=== PATIENT | male | born 1935 | race Caucasian/White ===

== ENCOUNTER 2020-09-08 15:36 | Inpatient (IN) | payer OTHER, BC ==
[2020-09-08] MEDS ORDERED: LACTATED RINGERS SOLUTION 1,000 ML IV STA (17:47)
[2020-09-08] MEDS ORDERED: ACETAMINOPHEN 1000 MG/100 ML BAG IVPB ONE (17:47)
[2020-09-08 18:12] LABS: BASO % 0.1 % (0-2.0); HEMATOCRIT 36.4 % (35.4-49); HEMOGLOBIN 12.4 GM/dL (11.7-16.9); LYMPH % 71.6 % (8-40); MCH 28.3 pg (25.7-33.7); MEAN PLT VOLUME 8.8 fl (7.5-11.1); MONO % 2.8 % (3.8-10.2); NEUT % 25.5 % (42.8-82.8); PLATELET COUNT 140 K/MM3 (134-434); RBC 4.39 M/mm3 (4.00-5.60); VENOUS BASE EXCESS -1.1 mmol/L (-2-2); VENOUS O2 SATURATION 73.8 % (70-80); VENOUS PCO2 33.9 mmHg (38-52); VENOUS PH 7.437 (7.310-7.410); WHITE BLOOD COUNT 20.4 K/mm3 (4.0-10.0)
[2020-09-08 18:23] LABS: ACTIVATED PTT 34.2 SECONDS (25.2-36.5)
[2020-09-08] MEDS ORDERED: CEFTRIAXONE 1,000 MG in DEXTROSE 5%-WATER - 50 ML IVPB ONE (18:26)
[2020-09-08] MEDS ORDERED: AZITHROMYCIN IVPB 500 MG in DEXTROSE 5%-WATER - 250 ML IVPB ONE (18:26)
[2020-09-08 18:32] LABS: CHLORIDE 102 mmol/L (98-107); SODIUM 134 mmol/L (136-145)
[2020-09-08] MEDS ORDERED: AZITHROMYCIN IVPB 500 MG/250 ML BAG IVPB ONE (18:34)
[2020-09-08] MEDS ORDERED: ACETAMINOPHEN INJECTION 100 ML IVPB ONE (18:34)
[2020-09-08 18:35] LABS: ALBUMIN 3.1 g/dl (3.4-5.0); ANION GAP 8 MMOL/L (8-16); BLOOD UREA NITROGEN 22.1 mg/dL (7-18); CALCIUM 7.9 mg/dL (8.5-10.1); CO2 23 mmol/L (21-32)
[2020-09-08 18:36] LABS: GLUCOSE,RANDOM 107 mg/dL (74-106)
[2020-09-08 18:37] LABS: BILIRUBIN,DIRECT 0.3 mg/dL (0.0-0.2); CREATININE 1.3 mg/dL (0.55-1.3); SGOT/AST 30 U/L (15-37); SGPT/ALT 24 U/L (13-61)
[2020-09-08] MEDS ORDERED: CEFTRIAXONE 1,000 GM in DEXTROSE 5%-WATER - 50 ML IVPB ONE (18:38)
[2020-09-08 18:39] LABS: BILIRUBIN,TOTAL 0.6 mg/dL (0.2-1); TOT PROT 6.5 g/dl (6.4-8.2)
[2020-09-08 18:41] LABS: ALK PHOS 67 U/L (45-117)
[2020-09-08 18:42] LABS: LDH 310 U/L (87-246)
[2020-09-08] MEDS ORDERED: SODIUM CHLORIDE 0.9% 500 ML INFUS.BAG IV ONE (18:45)
[2020-09-08 19:14] LABS: SMUDGE CELLS MODERATE
[2020-09-08 20:11] LABS: INR 1.32 (0.83-1.09); PROTHROMBIN TIME (PATIENT) 15.8 SEC (9.7-13.0)
[2020-09-08] MEDS ORDERED: ACETAMINOPHEN 325 MG TABLET (FP) PO PRN (21:54)
[2020-09-08] MEDS ORDERED: SODIUM CHLORIDE 1,000 ML IV SCH (22:00)
[2020-09-09] MEDS ORDERED: DEXAMETHASONE SOD PHOSPHATE 10 MG/1 ML VIAL ONE (01:32)
[2020-09-09] MEDS ORDERED: dilTIAZem HCL 60 MG TABLET ONE (01:33)
[2020-09-09] MEDS: DEXAMETHASONE SOD PHOSPHATE 4 MG/1 ML VIAL IVPUSH SCH ×2 (02:01→11:22)
[2020-09-09 02:41] LABS: EPI CELLS 23 /uL (0-25.1); HYALINE CASTS 7 /uL (0-3.1); PH,URINE 5.5 (5.0-8.0); URINE APPEARANCE CLEAR; URINE BACTERIA 16 /uL (0-1359); URINE BILIRUBIN NEGATIVE (NEGATIVE); URINE COLOR YELLOW; URINE GLUCOSE (UA) NEGATIVE (NEGATIVE); URINE KETONE TRACE (NEGATIVE); URINE LEUK ESTERASE NEGATIVE (NEGATIVE); URINE NITRITE NEGATIVE (NEGATIVE); URINE PROTEIN 2+ (NEGATIVE); URINE RBC 221 /uL (0-23.9); URINE UROBILINOGEN 0.2 mg/dL (0.2-1.0); URINE WBC 15 /uL (0-25.8)
[2020-09-09 07:30] LABS: HEMATOCRIT 33.4 % (35.4-49); HEMOGLOBIN 11.3 GM/dL (11.7-16.9); LYMPH % 73.2 % (8-40); MCHC 33.8 g/dl (32.0-35.9); MEAN CELL VOLUME 82.9 fl (80-96); MEAN PLT VOLUME 8.7 fl (7.5-11.1); MONO % 1.7 % (3.8-10.2); NEUT % 25.1 % (42.8-82.8); PLATELET COUNT 133 K/MM3 (134-434); RBC 4.03 M/mm3 (4.00-5.60); RDW 14.4 % (11.9-15.9); WHITE BLOOD COUNT 20.5 K/mm3 (4.0-10.0)
[2020-09-09 07:52] LABS: ALBUMIN 2.7 g/dl (3.4-5.0); CALCIUM 7.5 mg/dL (8.5-10.1)
[2020-09-09 07:53] LABS: BLOOD UREA NITROGEN 22.9 mg/dL (7-18)
[2020-09-09 07:57] LABS: PHOSPHOROUS 3.2 mg/dL (2.5-4.9); TOT PROT 5.7 g/dl (6.4-8.2)
[2020-09-09 07:58] LABS: BILIRUBIN,TOTAL 1.1 mg/dL (0.2-1)
[2020-09-09] MEDS ORDERED: ENOXAPARIN NA (PORCINE) 40 MG/0.4 ML DISP.SYRIN SQ ONE (09:29)
[2020-09-09] MEDS ORDERED: ZINC SULFATE 220 MG CAPSULE (FP) ONE (09:30)
[2020-09-09] MEDS ORDERED: CEFTRIAXONE 1 GM/50 ML BAG ONE (09:31)
[2020-09-09] MEDS ORDERED: ASCORBIC ACID 500 MG TABLET (FP) ONE (09:31)
[2020-09-09] MEDS ORDERED: CHOLECALCIFEROL (VIT D3) 1,000 UNIT (25 MCG) TABLET ONE (09:32)
[2020-09-09 09:39] LABS: ANISOCYTOSIS 0; MACROCYTOSIS 1+; PLATELET ESTIMATE DECREASED
[2020-09-09] MEDS: ENOXAPARIN NA (PORCINE) 40 MG/0.4 ML DISP.SYRIN SQ SCH (09:56)
[2020-09-09] MEDS: CEFTRIAXONE 1 GM in DEXTROSE 5%-WATER - 50 ML IVPB SCH (09:56)
[2020-09-09] MEDS: ZINC SULFATE 220 MG CAPSULE (FP) PO SCH (09:56)
[2020-09-09] MEDS: ASCORBIC ACID 500 MG TABLET (FP) PO SCH ×2 (09:57→22:27)
[2020-09-09] MEDS: CHOLECALCIFEROL (VIT D3) 1,000 UNIT (25 MCG) TABLET PO SCH (09:57)
[2020-09-09] MEDS ORDERED: DEXTROSE 5%-WATER - 50 ML IVPB ONE (11:14)
[2020-09-09] MEDS ORDERED: cefTRIAXone SODIUM 1 GM VIAL ONE (11:14)
[2020-09-09] MEDS ORDERED: PT OWN MED DRAWER 7, Y5N ONE ×3 (11:22→23:11)
[2020-09-09 12:08] VITALS: BMI 29.0
[2020-09-09] MEDS: AZITHROMYCIN IVPB 250 MG in DEXTROSE 5%-WATER - 250 ML IVPB SCH (12:09)
[2020-09-09] MEDS ORDERED: REMDESIVIR 200 MG in SODIUM CHLORIDE 210 ML IVPB ONE (15:45)
[2020-09-10] MEDS ORDERED: ACETAMINOPHEN 1000 MG/100 ML BAG IVPB ONE (00:22)
[2020-09-10 08:55] LABS: HEMATOCRIT 35.3 % (35.4-49); HEMOGLOBIN 11.9 GM/dL (11.7-16.9); MCH 27.7 pg (25.7-33.7); MCHC 33.7 g/dl (32.0-35.9); MEAN CELL VOLUME 82.2 fl (80-96); PLATELET COUNT 152 K/MM3 (134-434); RBC 4.29 M/mm3 (4.00-5.60); RDW 14.4 % (11.9-15.9)
[2020-09-10 09:25] LABS: ALBUMIN 2.7 g/dl (3.4-5.0); BLOOD UREA NITROGEN 25.9 mg/dL (7-18); CALCIUM 7.8 mg/dL (8.5-10.1); MAGNESIUM 2.1 mg/dL (1.8-2.4)
[2020-09-10 09:29] LABS: BILIRUBIN,TOTAL 0.5 mg/dL (0.2-1); CREATININE 1.2 mg/dL (0.55-1.3); PHOSPHOROUS 3.6 mg/dL (2.5-4.9)
[2020-09-10 09:30] LABS: TOT PROT 6.1 g/dl (6.4-8.2)
[2020-09-10 09:45] LABS: ERYTHROCYTE SEDIMENTATION RATE 57 mm/hr (0-20)
[2020-09-10] MEDS: ZINC SULFATE 220 MG CAPSULE (FP) PO SCH (12:18)
[2020-09-10] MEDS: CHOLECALCIFEROL (VIT D3) 1,000 UNIT (25 MCG) TABLET PO SCH (12:18)
[2020-09-10] MEDS: DEXAMETHASONE SOD PHOSPHATE 4 MG/1 ML VIAL IVPUSH SCH (12:18)
[2020-09-10] MEDS: ASCORBIC ACID 500 MG TABLET (FP) PO SCH ×2 (12:18→22:32)
[2020-09-10] MEDS: ENOXAPARIN NA (PORCINE) 40 MG/0.4 ML DISP.SYRIN SQ SCH (12:18)
[2020-09-10] MEDS: CEFTRIAXONE 1 GM in DEXTROSE 5%-WATER - 50 ML IVPB SCH (16:00)
[2020-09-10] MEDS: AZITHROMYCIN IVPB 250 MG in DEXTROSE 5%-WATER - 250 ML IVPB SCH (17:55)
[2020-09-10] MEDS: REMDESIVIR 100 MG in SODIUM CHLORIDE 230 ML IVPB SCH (18:42)
[2020-09-11 08:36] LABS: HEMATOCRIT 34.6 % (35.4-49); HEMOGLOBIN 11.6 GM/dL (11.7-16.9); MCH 28.1 pg (25.7-33.7); MCHC 33.6 g/dl (32.0-35.9); MEAN CELL VOLUME 83.6 fl (80-96); MEAN PLT VOLUME 9.2 fl (7.5-11.1); PLATELET COUNT 161 K/MM3 (134-434); RBC 4.14 M/mm3 (4.00-5.60); RDW 14.4 % (11.9-15.9); WHITE BLOOD COUNT 27.5 K/mm3 (4.0-10.0)
[2020-09-11 08:52] LABS: BLOOD UREA NITROGEN 28.6 mg/dL (7-18); CALCIUM 7.9 mg/dL (8.5-10.1)
[2020-09-11 08:53] LABS: ALBUMIN 2.4 g/dl (3.4-5.0); MAGNESIUM 2.2 mg/dL (1.8-2.4)
[2020-09-11 08:57] LABS: BILIRUBIN,TOTAL 0.4 mg/dL (0.2-1); CREATININE 1.1 mg/dL (0.55-1.3); PHOSPHOROUS 3.5 mg/dL (2.5-4.9); TOT PROT 5.4 g/dl (6.4-8.2)
[2020-09-11] MEDS ORDERED: cefTRIAXone SODIUM 1 GM VIAL ONE (09:46)
[2020-09-11] MEDS ORDERED: PT OWN MED DRAWER 7, Y5N ONE (09:46)
[2020-09-11] MEDS ORDERED: DEXTROSE 5%-WATER - 50 ML IVPB ONE (09:46)
[2020-09-11] MEDS: CHOLECALCIFEROL (VIT D3) 1,000 UNIT (25 MCG) TABLET PO SCH (09:53)
[2020-09-11] MEDS: DEXAMETHASONE SOD PHOSPHATE 4 MG/1 ML VIAL IVPUSH SCH (09:53)
[2020-09-11] MEDS: ENOXAPARIN NA (PORCINE) 40 MG/0.4 ML DISP.SYRIN SQ SCH (09:53)
[2020-09-11] MEDS: CEFTRIAXONE 1 GM in DEXTROSE 5%-WATER - 50 ML IVPB SCH (09:54)
[2020-09-11] MEDS: ASCORBIC ACID 500 MG TABLET (FP) PO SCH ×2 (09:54→21:53)
[2020-09-11 11:39] LABS: ERYTHROCYTE SEDIMENTATION RATE 51 mm/hr (0-20)
[2020-09-11] MEDS: ZINC SULFATE 220 MG CAPSULE (FP) PO SCH (12:35)
[2020-09-11] MEDS: REMDESIVIR 100 MG in SODIUM CHLORIDE 230 ML IVPB SCH (12:35)
[2020-09-11] MEDS: AZITHROMYCIN IVPB 250 MG in DEXTROSE 5%-WATER - 250 ML IVPB SCH (12:36)
[2020-09-12 09:20] LABS: BASO % 0.1 % (0-2.0); HEMATOCRIT 34.9 % (35.4-49); HEMOGLOBIN 11.8 GM/dL (11.7-16.9); LYMPH % 77.1 % (8-40); MCH 27.9 pg (25.7-33.7); MCHC 33.7 g/dl (32.0-35.9); MEAN CELL VOLUME 82.8 fl (80-96); MEAN PLT VOLUME 9.3 fl (7.5-11.1); MONO % 4.3 % (3.8-10.2); NEUT % 18.5 % (42.8-82.8); PLATELET COUNT 204 K/MM3 (134-434); RBC 4.22 M/mm3 (4.00-5.60); RDW 14.5 % (11.9-15.9)
[2020-09-12 09:38] LABS: CALCIUM 7.6 mg/dL (8.5-10.1)
[2020-09-12 09:39] LABS: ALBUMIN 2.5 g/dl (3.4-5.0); BLOOD UREA NITROGEN 29.3 mg/dL (7-18); MAGNESIUM 2.1 mg/dL (1.8-2.4); PHOSPHOROUS 3.1 mg/dL (2.5-4.9)
[2020-09-12 09:41] LABS: TOT PROT 5.8 g/dl (6.4-8.2)
[2020-09-12 09:42] LABS: CREATININE 1.1 mg/dL (0.55-1.3)
[2020-09-12 09:57] LABS: BILIRUBIN,TOTAL 0.4 mg/dL (0.2-1)
[2020-09-12] MEDS ORDERED: DEXTROSE 5%-WATER - 50 ML IVPB ONE (10:54)
[2020-09-12] MEDS ORDERED: cefTRIAXone SODIUM 1 GM VIAL ONE (10:54)
[2020-09-12 11:04] LABS: ANISOCYTOSIS 0; MACROCYTOSIS 0; PLATELET ESTIMATE NORMAL
[2020-09-12 11:29] LABS: ERYTHROCYTE SEDIMENTATION RATE 60 mm/hr (0-20)
[2020-09-12] MEDS: ZINC SULFATE 220 MG CAPSULE (FP) PO SCH (12:26)
[2020-09-12] MEDS: ENOXAPARIN NA (PORCINE) 40 MG/0.4 ML DISP.SYRIN SQ SCH (12:26)
[2020-09-12] MEDS: DEXAMETHASONE SOD PHOSPHATE 4 MG/1 ML VIAL IVPUSH SCH (12:26)
[2020-09-12] MEDS: CHOLECALCIFEROL (VIT D3) 1,000 UNIT (25 MCG) TABLET PO SCH (12:26)
[2020-09-12] MEDS: ASCORBIC ACID 500 MG TABLET (FP) PO SCH ×2 (12:27→21:19)
[2020-09-12] MEDS: CEFTRIAXONE 1 GM in DEXTROSE 5%-WATER - 50 ML IVPB SCH (12:27)
[2020-09-12] MEDS: AZITHROMYCIN IVPB 250 MG in DEXTROSE 5%-WATER - 250 ML IVPB SCH (12:27)
[2020-09-12] MEDS: REMDESIVIR 100 MG in SODIUM CHLORIDE 230 ML IVPB SCH (12:29)
[2020-09-12] MEDS ORDERED: PT OWN MED DRAWER 7, Y5N ONE (21:11)
[2020-09-12] MEDS: FAMOTIDINE 20 MG/50 ML IVPB 20 MG/50 ML MG IVPB SCH (21:18)
[2020-09-13] MEDS ORDERED: PT OWN MED DRAWER 7, Y5N ONE ×3 (01:06→21:07)
[2020-09-13 08:32] LABS: BASO % 0.2 % (0-2.0); HEMOGLOBIN 11.2 GM/dL (11.7-16.9); LYMPH % 73.2 % (8-40); MCH 27.5 pg (25.7-33.7); MCHC 32.8 g/dl (32.0-35.9); MEAN CELL VOLUME 83.7 fl (80-96); MEAN PLT VOLUME 9.3 fl (7.5-11.1); MONO % 4.6 % (3.8-10.2); PLATELET COUNT 221 K/MM3 (134-434); RBC 4.07 M/mm3 (4.00-5.60); RDW 14.9 % (11.9-15.9)
[2020-09-13 08:55] LABS: ALBUMIN 2.5 g/dl (3.4-5.0)
[2020-09-13 08:56] LABS: CALCIUM 7.7 mg/dL (8.5-10.1)
[2020-09-13 08:57] LABS: BLOOD UREA NITROGEN 33.4 mg/dL (7-18); MAGNESIUM 2.2 mg/dL (1.8-2.4)
[2020-09-13 08:58] LABS: CREATININE 1.1 mg/dL (0.55-1.3); PHOSPHOROUS 3.5 mg/dL (2.5-4.9)
[2020-09-13 08:59] LABS: BILIRUBIN,TOTAL 0.5 mg/dL (0.2-1)
[2020-09-13 09:00] LABS: TOT PROT 5.4 g/dl (6.4-8.2)
[2020-09-13] MEDS: ASCORBIC ACID 500 MG TABLET (FP) PO SCH ×2 (10:55→22:32)
[2020-09-13 10:56] LABS: ANISOCYTOSIS 1+; MACROCYTOSIS 0; OVALOCYTE 1+; PLATELET ESTIMATE NORMAL
[2020-09-13] MEDS: REMDESIVIR 100 MG in SODIUM CHLORIDE 230 ML IVPB SCH (10:56)
[2020-09-13] MEDS: ENOXAPARIN NA (PORCINE) 40 MG/0.4 ML DISP.SYRIN SQ SCH (10:56)
[2020-09-13] MEDS: ZINC SULFATE 220 MG CAPSULE (FP) PO SCH (10:56)
[2020-09-13] MEDS: CHOLECALCIFEROL (VIT D3) 1,000 UNIT (25 MCG) TABLET PO SCH (10:56)
[2020-09-13] MEDS: DEXAMETHASONE SOD PHOSPHATE 4 MG/1 ML VIAL IVPUSH SCH (10:56)
[2020-09-13 11:26] LABS: ERYTHROCYTE SEDIMENTATION RATE 26 mm/hr (0-20)
[2020-09-13] MEDS: FAMOTIDINE 20 MG/50 ML IVPB 20 MG/50 ML MG IVPB SCH (13:19)
[2020-09-14 09:56] LABS: BASO % 0.1 % (0-2.0); HEMATOCRIT 37.2 % (35.4-49); HEMOGLOBIN 12.3 GM/dL (11.7-16.9); LYMPH % 87.5 % (8-40); MCH 27.7 pg (25.7-33.7); MCHC 33.1 g/dl (32.0-35.9); MEAN CELL VOLUME 83.8 fl (80-96); MEAN PLT VOLUME 8.9 fl (7.5-11.1); MONO % 2.3 % (3.8-10.2); NEUT % 10.1 % (42.8-82.8); PLATELET COUNT 281 K/MM3 (134-434); RBC 4.45 M/mm3 (4.00-5.60); RDW 14.6 % (11.9-15.9)
[2020-09-14 10:20] LABS: ALBUMIN 2.8 g/dl (3.4-5.0)
[2020-09-14 10:21] LABS: BLOOD UREA NITROGEN 30.6 mg/dL (7-18); CALCIUM 7.8 mg/dL (8.5-10.1)
[2020-09-14 10:22] LABS: MAGNESIUM 2.1 mg/dL (1.8-2.4)
[2020-09-14 10:24] LABS: CREATININE 1.2 mg/dL (0.55-1.3); PHOSPHOROUS 3.5 mg/dL (2.5-4.9)
[2020-09-14 10:25] LABS: BILIRUBIN,TOTAL 0.7 mg/dL (0.2-1)
[2020-09-14] MEDS: DEXAMETHASONE SOD PHOSPHATE 4 MG/1 ML VIAL IVPUSH SCH (10:28)
[2020-09-14] MEDS: FAMOTIDINE 20 MG/50 ML IVPB 20 MG/50 ML MG IVPB SCH (10:29)
[2020-09-14] MEDS: ZINC SULFATE 220 MG CAPSULE (FP) PO SCH (10:29)
[2020-09-14] MEDS: CHOLECALCIFEROL (VIT D3) 1,000 UNIT (25 MCG) TABLET PO SCH (10:29)
[2020-09-14] MEDS: ASCORBIC ACID 500 MG TABLET (FP) PO SCH ×2 (10:29→21:37)
[2020-09-14] MEDS: ENOXAPARIN NA (PORCINE) 40 MG/0.4 ML DISP.SYRIN SQ SCH (10:29)
[2020-09-14 11:11] LABS: WHITE BLOOD COUNT 52.9 K/mm3 (4.0-10.0)
[2020-09-14] MEDS ORDERED: PT OWN MED DRAWER 7, Y5N ONE (21:32)
[2020-09-15 08:50] LABS: BASO % 0.1 % (0-2.0); HEMATOCRIT 34.4 % (35.4-49); HEMOGLOBIN 11.3 GM/dL (11.7-16.9); MCH 27.6 pg (25.7-33.7); MEAN CELL VOLUME 83.8 fl (80-96); MEAN PLT VOLUME 8.9 fl (7.5-11.1); MONO % 2.7 % (3.8-10.2); NEUT % 12.2 % (42.8-82.8); PLATELET COUNT 254 K/MM3 (134-434); RDW 14.4 % (11.9-15.9)
[2020-09-15 09:08] LABS: WHITE BLOOD COUNT 46.7 K/mm3 (4.0-10.0)
[2020-09-15 09:14] LABS: ALBUMIN 2.5 g/dl (3.4-5.0); CALCIUM 7.4 mg/dL (8.5-10.1)
[2020-09-15 09:15] LABS: BLOOD UREA NITROGEN 32.2 mg/dL (7-18); MAGNESIUM 2.2 mg/dL (1.8-2.4)
[2020-09-15 09:16] LABS: BILIRUBIN,TOTAL 0.5 mg/dL (0.2-1)
[2020-09-15 09:21] LABS: TOT PROT 5.2 g/dl (6.4-8.2)
[2020-09-15] MEDS: ZINC SULFATE 220 MG CAPSULE (FP) PO SCH (09:36)
[2020-09-15] MEDS: ENOXAPARIN NA (PORCINE) 40 MG/0.4 ML DISP.SYRIN SQ SCH (09:36)
[2020-09-15] MEDS: CHOLECALCIFEROL (VIT D3) 1,000 UNIT (25 MCG) TABLET PO SCH (09:36)
[2020-09-15] MEDS: ASCORBIC ACID 500 MG TABLET (FP) PO SCH (09:36)
[2020-09-15] MEDS: FAMOTIDINE 20 MG/50 ML IVPB 20 MG/50 ML MG IVPB SCH (09:36)
[2020-09-15 11:17] LABS: ANISOCYTOSIS 0; MACROCYTOSIS 0; OVALOCYTE 1+; PLATELET ESTIMATE NORMAL
[2020-09-15 14:48] VITALS: BP 119/85; PULSE 103; TEMP 97.8
== END 2020-09-15 17:54 | disposition home or self-care (01) | DRG 871 ==
LOC: JER 15:36 → JERBED 19:46 → J6S 09-09 10:08
PROVIDERS: ADMIT Hospitalist; ATTEND Internal Medicine
PROC: 8E0ZXY6 Isolation (ICD-10-PCS; 2020-09-08)
PROC: XW13325 Transfusion of Convalescent Plasma (Nonautologous) into Peripheral Vein, Percutaneous Approach, New Technology Group 5 (ICD-10-PCS; principal; 2020-09-09)
PROC: XW033E5 Introduction of Remdesivir Anti-infective into Peripheral Vein, Percutaneous Approach, New Technology Group 5 (ICD-10-PCS; 2020-09-09)
DX: A41.89 Other specified sepsis (principal); U07.1 COVID-19; J12.89 Other viral pneumonia; J96.01 Acute respiratory failure with hypoxia; E87.1 Hypo-osmolality and hyponatremia; C91.10 Chronic lymphocytic leukemia of B-cell type not having achieved remission; I25.10 Atherosclerotic heart disease of native coronary artery without angina pectoris; I48.91 Unspecified atrial fibrillation; N40.0 Benign prostatic hyperplasia without lower urinary tract symptoms; I10 Essential (primary) hypertension; E78.5 Hyperlipidemia, unspecified; R06.02 Shortness of breath; D72.829 Elevated white blood cell count, unspecified; Z85.6 Personal history of leukemia; I48.0 Paroxysmal atrial fibrillation
CPT/HCPCS: 36415; 36430; 71045-TC-FY; 80053; 81003; 82248; 82550; 82728; 82803; 83605; 83615; 83735; 84100; 84484; 85025; 85027; 85379; 85610; 85651; 85730; 86078; 86140; 86850; 86900; 86901; 87040; 87804; 93005; 93010; 94761; 99285-25; C9399; C9803; J0131; P9017; U0003

== ENCOUNTER 2022-06-23 15:41 | Inpatient (IN) | payer OTHER, BC ==
[2022-06-23 17:49] VITALS: BMI 30.1
[2022-06-23 19:04] LABS: BASO % 0.1 % (0-2.0); EOS % 0.1 % (0-4.5); HEMATOCRIT 35.7 % (35.4-49); HEMOGLOBIN 11.6 GM/dL (11.7-16.9); LYMPH % 69.6 % (8-40); MCH 27.9 pg (25.7-33.7); MCHC 32.4 g/dl (32.0-35.9); MEAN CELL VOLUME 85.9 fl (80-96); MEAN PLT VOLUME 9.4 fl (7.5-11.1); MONO % 2.7 % (3.8-10.2); NEUT % 27.5 % (42.8-82.8); PLATELET COUNT 167 10^3/uL (134-434); RBC 4.15 M/mm3 (4.00-5.60); WHITE BLOOD COUNT 25.2 K/mm3 (4.0-10.0)
[2022-06-23 19:10] LABS: EPI CELLS 6 /uL (0-25.1); HYALINE CASTS 21 /uL (0-3.1); URINE APPEARANCE TURBID; URINE BACTERIA 541 /uL (0-1359); URINE BILIRUBIN NEGATIVE (NEGATIVE); URINE COLOR YELLOW; URINE GLUCOSE (UA) NEGATIVE (NEGATIVE); URINE KETONE TRACE (NEGATIVE); URINE LEUK ESTERASE 1+ (NEGATIVE); URINE NITRITE NEGATIVE (NEGATIVE); URINE PROTEIN 2+ (NEGATIVE); URINE RBC 74 /uL (0-23.9); URINE UROBILINOGEN 0.2 mg/dL (0.2-1.0); URINE WBC 221 /uL (0-25.8)
[2022-06-23 19:14] LABS: INR 1.66 (0.83-1.09); PROTHROMBIN TIME (PATIENT) 19.2 SEC (9.7-13.0)
[2022-06-23 19:27] LABS: ALBUMIN 2.5 g/dl (3.4-5.0); BLOOD UREA NITROGEN 29.3 mg/dL (7-18); MAGNESIUM 2.5 mg/dL (1.8-2.4)
[2022-06-23 19:28] LABS: ANISOCYTOSIS 1+; MACROCYTOSIS 0; OVALOCYTE 1+
[2022-06-23 19:30] LABS: CREATININE 1.3 mg/dL (0.55-1.3)
[2022-06-23 19:31] LABS: TOT PROT 5.8 g/dl (6.4-8.2)
[2022-06-23 19:32] LABS: BILIRUBIN,TOTAL 0.6 mg/dL (0.2-1)
[2022-06-23] MEDS ORDERED: CEFTRIAXONE 1,000 MG in DEXTROSE 5%-WATER - 50 ML IVPB ONE (19:54)
[2022-06-23 20:01] LABS: URINE CRYSTALS MODERATE /hpf
[2022-06-23] MEDS ORDERED: CEFTRIAXONE 1 GM/50 ML BAG ONE (20:44)
[2022-06-24] MEDS: SODIUM CHLORIDE 1,000 ML IV SCH (05:42)
[2022-06-24] MEDS: CEFTRIAXONE 1 GM in DEXTROSE 5%-WATER - 50 ML IVPB SCH (10:39)
[2022-06-24] MEDS: APIXABAN 5 MG TABLET PO SCH ×2 (10:39→21:15)
[2022-06-24 11:07] LABS: HEMATOCRIT 38.9 % (35.4-49); HEMOGLOBIN 12.7 GM/dL (11.7-16.9); MCH 28.4 pg (25.7-33.7); MCHC 32.6 g/dl (32.0-35.9); MEAN PLT VOLUME 9.4 fl (7.5-11.1); PLATELET COUNT 198 10^3/uL (134-434); RBC 4.47 M/mm3 (4.00-5.60); RDW 15.2 % (11.9-15.9); WHITE BLOOD COUNT 28.5 K/mm3 (4.0-10.0)
[2022-06-24 11:38] LABS: CALCIUM 8.2 mg/dL (8.5-10.1)
[2022-06-24 11:39] LABS: ALBUMIN 2.6 g/dl (3.4-5.0); BLOOD UREA NITROGEN 23.1 mg/dL (7-18); MAGNESIUM 2.4 mg/dL (1.8-2.4)
[2022-06-24 11:42] LABS: CREATININE 1.2 mg/dL (0.55-1.3)
[2022-06-24 11:43] LABS: BILIRUBIN,TOTAL 0.6 mg/dL (0.2-1)
[2022-06-24 14:19] LABS: ANISOCYTOSIS 0; MACROCYTOSIS 0
[2022-06-25 10:12] LABS: HEMATOCRIT 35.6 % (35.4-49); HEMOGLOBIN 11.6 GM/dL (11.7-16.9); MCH 28.2 pg (25.7-33.7); MCHC 32.6 g/dl (32.0-35.9); MEAN CELL VOLUME 86.4 fl (80-96); MEAN PLT VOLUME 8.8 fl (7.5-11.1); PLATELET COUNT 204 10^3/uL (134-434); RBC 4.12 M/mm3 (4.00-5.60); RDW 15.1 % (11.9-15.9); WHITE BLOOD COUNT 26.1 K/mm3 (4.0-10.0)
[2022-06-25] MEDS: CEFTRIAXONE 1 GM in DEXTROSE 5%-WATER - 50 ML IVPB SCH (10:18)
[2022-06-25] MEDS: APIXABAN 5 MG TABLET PO SCH ×2 (10:18→21:47)
[2022-06-25] MEDS: SODIUM CHLORIDE 1,000 ML IV SCH (10:18)
[2022-06-25 10:31] LABS: ALBUMIN 2.3 g/dl (3.4-5.0); BLOOD UREA NITROGEN 19.6 mg/dL (7-18); CALCIUM 7.9 mg/dL (8.5-10.1); MAGNESIUM 2.3 mg/dL (1.8-2.4)
[2022-06-25 10:33] LABS: CREATININE 1.1 mg/dL (0.55-1.3); PHOSPHOROUS 2.9 mg/dL (2.5-4.9)
[2022-06-25 10:36] LABS: BILIRUBIN,TOTAL 0.5 mg/dL (0.2-1); TOT PROT 5.5 g/dl (6.4-8.2)
[2022-06-25 12:35] LABS: ANISOCYTOSIS 0; MACROCYTOSIS 0
[2022-06-25] MEDS: AMOXICILLIN 500 MG CAPSULE (FP) PO SCH ×2 (17:44→21:47)
[2022-06-25] MEDS ORDERED: ACETAMINOPHEN 325 MG TABLET (FP) PO PRN (18:25)
[2022-06-26] MEDS: AMOXICILLIN 500 MG CAPSULE (FP) PO SCH ×3 (05:57→22:48)
[2022-06-26] MEDS: APIXABAN 5 MG TABLET PO SCH (10:23)
[2022-06-26 11:06] LABS: HEMATOCRIT 38.3 % (35.4-49); HEMOGLOBIN 12.4 GM/dL (11.7-16.9); MCH 28.3 pg (25.7-33.7); MCHC 32.4 g/dl (32.0-35.9); MEAN CELL VOLUME 87.3 fl (80-96); MEAN PLT VOLUME 8.7 fl (7.5-11.1); PLATELET COUNT 250 10^3/uL (134-434); RBC 4.38 M/mm3 (4.00-5.60); RDW 15.3 % (11.9-15.9); WHITE BLOOD COUNT 29.6 K/mm3 (4.0-10.0)
[2022-06-26 11:51] LABS: ALBUMIN 2.4 g/dl (3.4-5.0); BLOOD UREA NITROGEN 18.6 mg/dL (7-18); CALCIUM 8.1 mg/dL (8.5-10.1); MAGNESIUM 2.5 mg/dL (1.8-2.4)
[2022-06-26 11:55] LABS: BILIRUBIN,TOTAL 0.6 mg/dL (0.2-1); TOT PROT 5.9 g/dl (6.4-8.2)
[2022-06-26 22:45] VITALS: RESP 18
[2022-06-26] MEDS: APIXABAN 2.5 MG TABLET PO SCH (22:48)
[2022-06-27] MEDS: AMOXICILLIN 500 MG CAPSULE (FP) PO SCH ×2 (06:34→14:13)
[2022-06-27] MEDS ORDERED: LACTOBACILLUS ACIDOPHILUS 1 TABLET PO SCH (10:00)
[2022-06-27] MEDS: APIXABAN 2.5 MG TABLET PO SCH (10:21)
[2022-06-27 15:31] VITALS: BP 133/67; PULSE 85; TEMP 97.9
== END 2022-06-27 17:41 | disposition home health service (06) | DRG 728 ==
LOC: JER 15:41 → JERBED 23:05 → J5S 06-24 02:49
PROVIDERS: ADMIT Internal Medicine; ATTEND Internal Medicine
DX: N41.0 Acute prostatitis (principal); C91.11 Chronic lymphocytic leukemia of B-cell type in remission; N39.0 Urinary tract infection, site not specified; I48.91 Unspecified atrial fibrillation; Z79.01 Long term (current) use of anticoagulants; Z86.16 Personal history of COVID-19; K75.81 Nonalcoholic steatohepatitis (NASH); N41.9 Inflammatory disease of prostate, unspecified; K76.89 Other specified diseases of liver; R91.1 Solitary pulmonary nodule; N28.1 Cyst of kidney, acquired; B95.2 Enterococcus as the cause of diseases classified elsewhere
CPT/HCPCS: 36415; 71045-TC-FY; 74176-TC; 80053; 81003; 83735; 84100; 84443; 84484; 85025; 85027; 85610; 85730; 86850; 86900; 86901; 87040; 87086; 87186; 93005; 93010; 97116-GP; 97161-GP; 99285-25; C9803-CS; U0003; U0005